=== PATIENT | female | born 2000 | race African-American/Black ===

== ENCOUNTER 2019-11-11 16:33 | Emergency (ER) | payer OTHER, SELFPAY ==
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
[2019-11-11 16:32] VITALS: BP 142/92; PULSE 89; RESP 18; TEMP 36.8; O2SAT 98
[2019-11-11] MEDS: DIAZEPAM 5 MG TABLET PO (16:51)
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
== END 2019-11-11 19:26 | disposition home or self-care (01) ==
PROVIDERS: Emergency Provider Emergency Medicine
DX: S01.512A Laceration without foreign body of oral cavity, initial encounter (principal); S09.90XA Unspecified injury of head, initial encounter; S50.12XA Contusion of left forearm, initial encounter; V49.40XA Driver injured in collision with unspecified motor vehicles in traffic accident, initial encounter
CPT/HCPCS: 12013; 70450; 70486; 72125; 73090; 99284; A9270